=== PATIENT | male | born 1990 | race Caucasian/White ===

== ENCOUNTER 2020-10-15 18:50 | Emergency (ER) | payer OTHER ==
[2020-10-15 21:19] LABS: BILIRUBIN NEGATIVE (NEGATIVE); BLOOD NEGATIVE Ery/uL (NEGATIVE); CLARITY CLEAR (CLEAR); COLOR YELLOW (YELLOW); GLUCOSE (U) NORMAL (NORMAL); LEUKOCYTES NEGATIVE Leu/uL (NEGATIVE); NITRITE NEGATIVE (NEGATIVE); PROTEIN NEGATIVE (NEGATIVE); UROBILINOGEN 0.2 mg/dL (0.2-1.0); pH 6.5 (5.0-9.0)
[2020-10-15 21:27] LABS: BASOPHIL 0.6 % (0-2); EOSINOPHIL 2.4 % (0-5); HCT 43.4 % (42.0-52.0); HGB 15.1 g/dl (13.2-18.0); LYMPHOCYTE 18.3 % (15-48); MCH 29.8 pg (25.0-31.0); MCHC 34.8 g/dL (32.0-36.0); MCV 85.6 fL (78.0-100.0); MONOCYTE 8.2 % (0-12); MPV 8.6 fL (6.0-9.5); NEUTROPHIL 70.3 % (41-80); NRBC 0; PLT 258 K/uL (150-400); RBC 5.07 M/uL (4.70-6.00); RDW 12.7 % (11.5-14.0); WBC 11.6 K/uL (4.0-10.5)
[2020-10-15 21:42] LABS: ALBUMIN 3.6 g/dL (3.4-5.0); BILIRUBIN - TOTAL 1.2 mg/dL (0.2-1.0); BUN/CREAT RATIO (CALC) 10.4 RATIO; CREATININE 0.96 mg/dL (0.67-1.17); GLOBULIN (CALCULATION) 3.6 g/dL; POTASSIUM 3.8 mmol/L (3.5-5.1); TOTAL PROTEIN 7.2 g/dL (6.4-8.2)
[2020-10-15] MEDS ORDERED: VIBRAMYCIN100 MG PO (22:11)
== END 2020-10-15 22:47 | disposition home or self-care (01) ==
LOC: FER 18:50
PROVIDERS: Nurse Practitioner Family
DX: J06.9 Acute upper respiratory infection, unspecified (principal)
CPT/HCPCS: 36415; 80053; 81003; 85025; 87880; 99283